=== PATIENT | female | born 1995 | race Caucasian/White ===

== ENCOUNTER → 2016-08-21 | Outpatient (CLI) | payer BC, OTHER ==
[~2016-08-21] MED LIST: MISC-696; PRENTAB26 PO
== END | disposition home or self-care (01) ==
LOC: C.LABSPEC 11:36
PROVIDERS: ATTEND Obstetrics & Gynecology
DX: Z34.03 Encounter for supervision of normal first pregnancy, third trimester (principal)

== ENCOUNTER 2016-08-31 05:54 | Inpatient (IN) | payer BC ==
[~2016-08-31] VITALS: Ht 165.1 cm; Wt 81.8 kg
[2016-08-31 06:34] VITALS: Ht 165.1 cm; Wt 81.8 kg
[2016-08-31] MEDS ORDERED: PRENTAB26 PO (06:34)
[2016-08-31] MEDS ORDERED: NURSING VERBAL MED ORDER ONE (06:45)
[2016-08-31] MEDS ORDERED: LACTATED RINGER'S 1000ML 1,000 ML IV SCH (07:00)
[2016-08-31 07:16] LABS: HEMATOCRIT 32.4 % (37-47); MEAN CORPUSCULAR HEMOGLOBIN 31.5 pg (25-34); MEAN CORPUSCULAR HGB CONC 34.3 g/dl (32-36); MEAN PLATELET VOLUME 10.4 fL (7.4-10.4); PLATELET COUNT 156 K/uL (130-400); RED BLOOD COUNT 3.52 M/uL (4.2-5.4); WHITE BLOOD COUNT 8.63 K/uL (4.8-10.8)
[2016-08-31] MEDS ORDERED: LACTATED RINGER'S 1000ML 500 ML IV PRN ×3 (07:36→17:10)
[2016-08-31] MEDS ORDERED: CALCIUM CARBONATE 500 MG CHEWABLE PO PRN ×2 (07:45→21:45)
[2016-08-31] MEDS ORDERED: OXYTOCIN 30 UNITS/500ML NSS IV PRN ×3 (07:45→22:00)
[2016-08-31] MEDS ORDERED: MISOPROSTOLTAB 50 MCG TAB PO ONE (08:15)
[2016-08-31] MEDS ORDERED: BUTORPHANOL TARTRATE 1 MG/ML VIAL IV PRN ×2 (09:45→11:30)
[2016-08-31] MEDS ORDERED: BUTORPHANOL TARTRATE 1 MG/ML VIAL IV ONE (09:45)
[2016-08-31] MEDS: LACTATED RINGER'S 1000ML 1,000 ML IV SCH ×4 (10:13→23:01)
[2016-08-31] MEDS ORDERED: FENTANYL 2MCG/ML ROPIV 1.25MG/ML 100ML BAG EPI ONE (13:12)
[2016-08-31] MEDS ORDERED: BUPIVACAINE 0.25% 30 ML VIAL ONE (13:12)
[2016-08-31] MEDS ORDERED: FENTANYL CITRATE INJ 50 MCG/1 ML 2 ML VIAL ONE (13:12)
[2016-08-31] MEDS ORDERED: EpHEDrine SULFATE INJ 50 MG/ML AMP ONE (13:12)
[2016-08-31] MEDS ORDERED: NALOXONE HCL INJ 1 MG in SODIUM CHLORIDE 0.9% 1000ML 1,000 ML IV PRN (14:07)
[2016-08-31] MEDS ORDERED: EpHEDrine SULFATE INJ 50 MG/ML AMP IV PRN (14:15)
[2016-08-31] MEDS ORDERED: NALBUPHINE HCL INJ 10 MG/ML AMP IV PRN (14:15)
[2016-08-31] MEDS ORDERED: PROMETHAZINE HCL INJ 25 MG in SODIUM CHLORIDE 0.9% 50ML 50 ML IV PRN (14:15)
[2016-08-31] MEDS ORDERED: DiphenhydrAMINE HCL 50 MG/ML VIAL IV PRN (14:15)
[2016-08-31] MEDS ORDERED: NALOXONE HCL INJ 0.4 MG/1 ML VIAL/CARP IV PRN (14:15)
[2016-08-31] MEDS ORDERED: ONDANSETRON INJ 2 MG/ML 2 ML VIAL IV PRN (14:15)
[2016-08-31] MEDS: FENTANYL 2MCG/ML ROPIV 1.25MG/ML 100ML BAG EPI PRN ×3 (14:31→22:58)
[2016-09-01] MEDS: LACTATED RINGER'S 1000ML 1,000 ML IV SCH (01:30)
[2016-09-01] MEDS ORDERED: OXYTOCIN INJ 20 UNITS in LACTATED RINGER'S 1000ML 1,000 ML IV SCH (05:06)
[2016-09-01] MEDS ORDERED: HYDROCORTISONE ACETATE 25 MG SUPP PR PRN (05:15)
[2016-09-01] MEDS ORDERED: OXYTOCIN 30 UNITS/500ML NSS IV PRN (05:15)
[2016-09-01] MEDS ORDERED: SUPERCREAM 0.870 % 15GM JAR EXT PRN (05:15)
[2016-09-01] MEDS ORDERED: ACETAMINOPHEN/CODEINE 300/30MG TAB PO PRN ×2 (05:15)
[2016-09-01] MEDS ORDERED: LANOLIN OINT EXT PRN ×2 (05:15)
[2016-09-01] MEDS ORDERED: MEASLES, MUMPS & RUBELLA VIRUS VIAL SQ. ONE (05:15)
[2016-09-01] MEDS ORDERED: DIPHTHERIA/TETANUS/PERTUSSIS 0.5 ML SYR/VIAL IM. ONE (05:15)
[2016-09-01] MEDS ORDERED: BENZOCAINE 20% AER SPR 82.5 GM CAN EXT PRN (05:15)
[2016-09-01] MEDS ORDERED: ACETAMINOPHEN 325 MG TAB PO PRN (05:15)
--- NOTE | 2016-09-01 05:45 | DELIVERY SUMMARY ---
DATE OF OPERATION: 09/01/2016 The patient dilated to complete and pushed to deliver a viable female infant. Apgars 8 and 9 via over a small vaginal laceration, double nuchal cord noted and baby delivered through. Mouth and nares were bulb suctioned and was vigorous at . Cord blood obtained. Placenta delivered spontaneously and intact 3-vessel cord. Hemostasis achieved with dilute Pitocin and uterine massage. Cervix and sulci intact. Small vaginal laceration repaired with figure of eight suture with 3-0 Vicryl for excellent hemostasis. EBL 300 mL. Mother and baby stable in recovery. I attest to the content of the Intraoperative Record and any orders documented therein. Any exceptions are noted below. MTDD
--- NOTE | 2016-09-01 07:25 | Anesthesia Procedure Note ---
Anesthesia Epidural Removal Nt Date & Time Sep 01, 2016 at 07:26 Vital Signs Pain Intensity: 0.0 Notes Mental Status: alert / awake / arousable, participated in evaluation Nausea / Vomiting: adequately controlled Pain: adequately controlled Airway Patency, RR, SpO2: stable & adequate BP & HR: stable & adequate Hydration State: stable & adequate Neuraxial Anesthesia: was administered, sensory block is resolved Anesthetic Complications: no major complications apparent, pt satisfied with anesthetic care Epidural: removed without complications, with tip intact Notes: Pt doing very well.
[2016-09-01 09:00] VITALS: BP 110/56; PULSE 65; TEMP 36.4
[2016-09-01] MEDS: IBUPROFEN 600 MG TAB PO PRN ×3 (12:11→23:50)
[2016-09-01] MEDS: DOCUSATE SODIUM 100 MG CAP PO SCH ×2 (12:11→20:22)
[2016-09-01 12:15] VITALS: BP 110/62; PULSE 66; TEMP 36.8; O2SAT 99
[2016-09-01 16:15] VITALS: BP 103/60; PULSE 65; TEMP 36.4
[2016-09-01 20:30] VITALS: BP 93/52; PULSE 74; TEMP 36.6; O2SAT 97
[2016-09-01 23:45] VITALS: BP 90/47; PULSE 59; TEMP 36.4
[2016-09-02 04:30] VITALS: BP 99/51; PULSE 67; TEMP 36.8
[2016-09-02] MEDS: IBUPROFEN 600 MG TAB PO PRN ×2 (04:39→20:25)
--- NOTE | 2016-09-02 06:51 | Progress Note ---
Subjective Sep 02, 2016. Subjective conversation w/ patient, physical exam Ambulation: ambulating normally Voiding: no voiding problems Passing Gas: Yes Diet Tolerance: Regular Diet Lochia: Moderate Feeding Type: Breast Feeding Pain: No pain reported this morning Review of Systems Constitutional: No chills, No fever Respiratory: No cough, No shortness of breath Cardiac: No chest pain Breast: No breast pain Abdomen: No nausea, No pain, No vomiting Female : No dysuria Objective Vital Signs Date Time Temp Pulse Resp B/P Pulse Ox O2 Delivery O2 Flow Rate FiO2 09/02/16 04:30 36.8 67 16 99/51 Room Air 09/01/16 23:45 Room Air 09/01/16 23:45 36.4 59 16 90/47 Room Air 09/01/16 20:30 36.6 74 16 93/52 97 Room Air 09/01/16 16:15 36.4 65 20 103/60 09/01/16 12:15 36.8 66 16 110/62 99 Room Air 09/01/16 09:00 36.4 65 20 110/56 Physical Exam General Appearance: WELL-APPEARING, WD/WN, NO APPARENT DISTRESS Respiratory/Chest: lungs clear, normal breath sounds Cardiovascular: regular rate, rhythm, no gallop, no murmur Abdomen: non tender, soft Fundus: Firm, Relation to Umbilicus (1cm below umbilicus) Extremities: no calf tenderness Medications Current Inpatient Medications Medications (Trade) Dose Ordered Sig/Rnadell Route Start Time Stop Time Status Last Admin Dose Admin Oxytocin (Pitocin IV) 30 units UD PRN IV 09/01/16 05:15 10/01/16 05:14 Benzocaine (Dermoplast Aero Spr) 1 appln PRN PRN EXT 09/01/16 05:15 10/01/16 05:14 09/01/16 20:21 1 APPLN Cocaine HCl (Supercream 0.870% Cr) BID PRN EXT 09/01/16 05:15 09/15/16 05:14 Hydrocortisone Acetate (Anusol Hc Supp) 25 mg BID PRN [place] 09/01/16 05:15 10/01/16 05:14 Lanolin (Lanolin Oint) PRN PRN EXT 09/01/16 05:15 10/01/16 05:14 Ibuprofen (Motrin Tab) 600 mg Q4H PRN PO 09/01/16 05:15 10/01/16 05:14 09/02/16 04:39 600 MG Acetaminophen (Tylenol Tab) 650 mg Q6H PRN PO 09/01/16 05:15 10/01/16 05:14 Acetaminophen/ Codeine Phosphate (Tylenol w/ Codeine #3 Tab) 1 tab Q4H PRN PO 09/01/16 05:15 10/01/16 05:14 Acetaminophen/ Codeine Phosphate (Tylenol w/ Codeine #3 Tab) 2 tab Q4H PRN PO 09/01/16 05:15 10/01/16 05:14 09/01/16 06:18 2 TAB Docusate Sodium (coLACE CAP) 100 mg BID PO 09/01/16 08:00 10/01/16 07:59 09/01/16 20:22 100 MG Assessment and Plan Post- Day#: 1 Continue Routine Care: - Vital Signs reviewed and WNL (temp max 36.8) - Blood Type: O+, GBS Negative, Rubella Immune - Patient doing well clinically - Encourage Ambulation today - Tolerating PO Diet - Pain well controlled with Motrin Resident Physician Supervision Note: I interviewed and examined the patient. Discussed with Dr. López and agree with findings and plan as documented in the note. Any exceptions or clarifications are listed here: [None] Documented By: Breana Aguilar
[2016-09-02] MEDS ORDERED: MISC-696 (07:24)
[2016-09-02 07:30] VITALS: BP 102/59; PULSE 74; TEMP 36.6
[2016-09-02] MEDS: DOCUSATE SODIUM 100 MG CAP PO SCH ×2 (07:48→20:17)
[2016-09-02 16:20] VITALS: BP 111/60; PULSE 65; TEMP 36.9
[2016-09-02 23:40] VITALS: BP 101/54; PULSE 52; TEMP 36.4
--- NOTE | 2016-09-03 06:51 | Discharge Instructions ---
Discharge Instructions Admission Reason for Admission: LABOR Discharge Discharge Diagnosis / Problem: Vaginal Delivery Discharge Goals Goal(s): Routine recovery after delivery Medications Continue Dispensed Medications: supercream, dermaplast, tucks, lansinoh Activity Recommendations Activity Limitations: per Instructions/Follow-up section . Instructions / Follow-Up Instructions / Follow-Up ACTIVITY RECOMMENDATIONS: * Gradual return to full activity over the next 2-3 weeks. * No lifting - nothing heavier than baby over the next 2-3 weeks. * Do not engage in vigorous exercise, sexual activity or sports until cleared by your physician. * Do not drive or operate any motorized equipment until cleared by your physician. * You may shower/bathe daily. MEDICATIONS: For discomfort or pain, you may use Acetaminophen (Tylenol), Ibuprofen (Advil), or Naproxen (Aleve) following the package directions. For constipation you may use Colace following the package directions. BREAST CARE: If you are not breast feeding: * Wear a supportive bra 24 hours a day for one to two weeks. * Avoid stimulating your breasts and nipples as much as possible during the first few weeks after delivery. * When taking a shower, have the warm water hit your back, not breasts. * When your breasts feel full, apply ice packs. Usually three to four times a day helps ease the discomfort. * Take a mild pain medication (Tylenol / Motrin) when you are uncomfortable. If breast feeding: * Use breast milk to lubricate nipples. Lansinoh cream may be used for sore nipples. You do not need to remove cream prior to breast feeding. If using a different brand of cream, check the label for directions regarding removal of cream prior to nursing. * Wear a supportive bra. * If having problems with breasts or breast feeding, call a store sales consultant or your health care provider. EPISIOTOMY CARE: After delivery, if you have an episiotomy (stitches), the following steps will ease discomfort and aid healing. * For the first 24 hours after delivery, place ice packs next to your episiotomy to help reduce swelling. * After the first 24 hour-period, sitz baths, either portable or in the tub, are suggested. A shower with a shower arm sprayed over the episiotomy may be comforting. * [place]orena care should be done after each voiding and bowel movement. Squirt warm water from a plastic bottle over the perineum (region of the body between the anus and urinary opening) and pat dry. * Use Dermoplast to ease discomfort. Shake container. [place] directly over the episiotomy. Place a Tucks on a clean sanitary pad next to your episiotomy. SPECIAL CARE INSTRUCTIONS: When you are discharged from the hospital, it is important for you to follow the instructions listed below: * During the first week at home, you should be able to care for yourself and your baby. In addition, the usual light household activities are encouraged. * Limit your activities to the way you feel. Do not try to clean the house or move furniture. Be sensible. * If you actively engage in sports and have done so up until the time of your delivery, you may resume these activities as soon as you feel able. This may take up to one month or even longer. Use good judgment. * Continue to take your vitamins for at least six weeks after the of your baby. * Your diet need not be limited unless you were on a special diet before your delivery. Breast-feeding mothers need around 2500 calories per day and at least 64-80 ounces of fluid per day (8 to 10 glasses). * You should eat foods from the four major food groups. Crash diets or fad diets are to be avoided. Eating lean meats, fresh fruits and vegetables, low-fat dairy products, high fiber foods and a regular exercise program, will help you get back to your pre- weight without putting your health at risk. * Constipation is sometimes a problem after delivery. Take a mild laxative as needed. If breast feeding, Milk of Magnesia is acceptable to use. You may use a suppository or Fleets enema if no episiotomy. * A daily shower or tub bath is suggested. Be sure to thoroughly and gently dry the perineum. * A bloody vaginal discharge will usually continue until around four weeks post . A small amount of bleeding may continue for as long as six weeks. Vaginal discharge changes from the bright red bleeding after delivery to pink then brownish and finally yellowish-pink before becoming white and disappearing. * Bleeding may increase with activity. Your first period may come in 4-8 weeks. If you are breast feeding, your period may be delayed even longer. * [place] (sex) can begin whenever both you and your partner feel comfortable and do not have any form of genital infection. It is recommended that you wait at least six weeks for internal and external healing to occur. If you have questions, please talk to your health care practitioner. A condom should be used to prevent infection and . * Foreplay, gentle intercourse and lubrication is very important the first several times to prevent pain. A water-based lubricant such as K-Y jelly or Astroglide may be used. * If you have RH negative blood and your baby is RH positive, you will receive RHOGAM by injection prior to discharge. The nurse will give you a card to keep with you that has the date and place that you received RHOGAM after delivery. * During your care, you had a Rubella screen done to check for the presence of rubella antibodies in your blood. If your test was negative, you will receive a Rubella vaccine prior to discharge. This vaccine may cause a fever, soreness at the injection site and flu-like symptoms. If these symptoms persist, notify your health care practitioner. is not advised for one month after a Rubella vaccine. * Verbalizes understanding of car seat law as reviewed with patient nursing. * Car Seat hand-out given and reviewed with patient by nursing. * Shaken baby information reviewed with patient by nursing. Call you doctor if: * Heavy bleeding (saturating several pads an hour) or passing clots the size of your fist. * A fever >101 degrees F (38.3 degrees C) on two occasions four hours apart and /or chills. * Unusual pain in the pelvic or vaginal areas. * "Baby Blues" lasting longer than two weeks. If you have any questions or concerns, call your health care practitioner at . FOLLOW UP VISIT: * Please call the office at to schedule a 6 week examination. It is important you keep this appointment. It is important for you to make arrangements for either yearly or twice yearly check-ups thereafter. Current Hospital Diet Patient's current hospital diet: Regular OB Diet Discharge Diet Recommended Diet: Regular Diet Pending Studies Studies pending at discharge: no Medical Emergencies . Who to Call and When: Medical Emergencies: If at any time you feel your situation is an emergency, please call 911 immediately. . Non-Emergent Contact Non-Emergency issues call your: Gastrointestinal Technician . . "Provider Documentation" section prepared by Mike López. VTE Core Measure Inpt VTE Proph given/why not?: Treatment not indicated
--- NOTE | 2016-09-03 06:57 | Progress Note ---
Subjective Sep 03, 2016. Subjective conversation w/ patient, physical exam Ambulation: ambulating normally Voiding: no voiding problems Passing Gas: Yes Diet Tolerance: Regular Diet Lochia: Small Feeding Type: Breast Feeding Pain: No pain reported this morning Review of Systems Constitutional: No chills, No fever Respiratory: No cough, No shortness of breath Cardiac: No chest pain Breast: No breast pain Abdomen: No nausea, No pain, No vomiting Female : No dysuria Objective Vital Signs Date Time Temp Pulse Resp B/P Pulse Ox O2 Delivery O2 Flow Rate FiO2 09/02/16 23:40 Room Air 09/02/16 23:40 36.4 52 18 101/54 Room Air 09/02/16 16:20 36.9 65 20 111/60 09/02/16 07:30 36.6 74 20 102/59 Physical Exam General Appearance: WELL-APPEARING, WD/WN, NO APPARENT DISTRESS Respiratory/Chest: lungs clear, normal breath sounds Cardiovascular: regular rate, rhythm, no gallop, no murmur Abdomen: non tender, soft Fundus: Relation to Umbilicus (1cm below umbilicus) Extremities: no calf tenderness Medications Current Inpatient Medications Medications (Trade) Dose Ordered Sig/Randell Route Start Time Stop Time Status Last Admin Dose Admin Oxytocin (Pitocin IV) 30 units UD PRN IV 09/01/16 05:15 10/01/16 05:14 Benzocaine (Dermoplast Aero Spr) 1 appln PRN PRN EXT 09/01/16 05:15 10/01/16 05:14 09/01/16 20:21 1 APPLN Cocaine HCl (Supercream 0.870% Cr) BID PRN EXT 09/01/16 05:15 09/15/16 05:14 Hydrocortisone Acetate (Anusol Hc Supp) 25 mg BID PRN [place] 09/01/16 05:15 10/01/16 05:14 Lanolin (Lanolin Oint) PRN PRN EXT 09/01/16 05:15 10/01/16 05:14 Ibuprofen (Motrin Tab) 600 mg Q4H PRN PO 09/01/16 05:15 10/01/16 05:14 09/02/16 20:25 600 MG Acetaminophen (Tylenol Tab) 650 mg Q6H PRN PO 09/01/16 05:15 10/01/16 05:14 Acetaminophen/ Codeine Phosphate (Tylenol w/ Codeine #3 Tab) 1 tab Q4H PRN PO 09/01/16 05:15 10/01/16 05:14 Acetaminophen/ Codeine Phosphate (Tylenol w/ Codeine #3 Tab) 2 tab Q4H PRN PO 09/01/16 05:15 10/01/16 05:14 09/01/16 06:18 2 TAB Docusate Sodium (coLACE CAP) 100 mg BID PO 09/01/16 08:00 10/01/16 07:59 09/02/16 20:17 100 MG Assessment and Plan Post- Day#: 2 Continue Routine Care: - Vital Signs reviewed and WNL (temp max 36.4) - Blood Type: O+, GBS Negative, Rubella Immune - Patient doing well clinically - Encourage Ambulation today - Tolerating PO Diet - Pain well controlled - Discharge today Resident Physician Supervision Note: I interviewed and examined the patient. Discussed with Dr. López and agree with findings and plan as documented in the note. Any exceptions or clarifications are listed here: [None] Documented By: Alexis Barrett
[2016-09-03 07:37] VITALS: BP 115/66; PULSE 60; TEMP 36.4; O2SAT 99
[2016-09-03 08:10] VITALS: O2SAT 99
[2016-09-03] MEDS: DOCUSATE SODIUM 100 MG CAP PO SCH (08:17)
== END 2016-09-03 12:25 | disposition home or self-care (01) | DRG 775 ==
LOC: C.OPB 05:54 → C.LD 05:54 → C.OPB 06:47 → C.LD 06:47 → C.OBG 09-01 09:18
PROVIDERS: ADMIT Obstetrics & Gynecology; ATTEND Obstetrics & Gynecology
PROC: 3E0P7GC Introduction of Other Therapeutic Substance into Female Reproductive, Via Natural or Artificial Opening (ICD-10-PCS; principal; 2016-09-01)
PROC: 10E0XZZ Delivery of Products of Conception, External Approach (ICD-10-PCS; principal; 2016-09-01)
PROC: 0UQGXZZ Repair Vagina, External Approach (ICD-10-PCS; principal; 2016-09-01)
DX: O42.92 Full-term premature rupture of membranes, unspecified as to length of time between rupture and onset of labor (principal); O71.4 Obstetric high vaginal laceration alone; O76 Abnormality in fetal heart rate and rhythm complicating labor and delivery; O69.81X0 Labor and delivery complicated by cord around neck, without compression, not applicable or unspecified; Z37.0 Single live birth; Z3A.38 38 weeks gestation of pregnancy; Z23 Encounter for immunization

== ENCOUNTER → 2017-11-24 | Outpatient (CLI) | payer BC ==
[~2017-11-24] MED LIST changes: -MISC-696; +MISC-836
== END | disposition home or self-care (01) ==
LOC: C.PAPS 14:14
PROVIDERS: ATTEND Obstetrics & Gynecology
DX: Z01.419 Encounter for gynecological examination (general) (routine) without abnormal findings (principal)

== ENCOUNTER → 2017-12-17 | Outpatient (CLI) | payer BC | END | disposition home or self-care (01) | LOC: C.LABSPEC 13:12 | PROVIDERS: ATTEND Obstetrics & Gynecology | DX: Z30.430 Encounter for insertion of intrauterine contraceptive device (principal) ==

== ENCOUNTER 2019-06-10 11:36 | Inpatient (IN) ==
[2019-06-10] MEDS ORDERED: OXYTOCIN 30 UNITS/500 ML BAG IV PRN ×3 (12:08→23:03)
--- NOTE | 2019-06-10 12:21 | History & Physical Report ---
Date of Service June 10, 2019 Assessment & Plan (1) Supervision of normal intrauterine in multigravida: 24yo at 39+ weeks GA. SROM 1. Fetus: Cat 1 2. Labor: Will augment with pitocin 3. Vitals: wnl 4. GBS - 5. Epidural PRN History of Present Illness Primary Care Provider: NO PCP 24yo at 39+ weeks GA. Present for LOF and contractions. Reports cxt ongoing q6-10 minutes for past 2-3 days. Intensity of ctx increasing since this am. Reports large gush of fluid ~1hr ago. Denied VB. Good FM. course has been uncomplicated. Hx of prior uncomplicated . GBS negative Allergies Allergy/AdvReac Type Severity Reaction Status Date / Time No Known Drug Allergies Allergy none Verified 06/06/19 08:38 Home Medications Home Medications Medication Instructions Recorded Confirmed Type vit-iron fum-folic ac 1 tab PO DAILY 05/25/19 06/08/19 History [ Vitamin] Patient History Medical History History of acne History of chicken pox History of dysmenorrhea Surgical History S/P wisdom tooth extraction Family History Father Diabetes Mother Kidney stone Social History Preferred Language: Estonian marital status: Current Living Situation: Family Current Living Situation Comment: spouse and daughter current occupation: homemaker Feels Safe at Home: Yes Smoking Status: Never smoker Hx Alcohol Use: No Hx Substance Use: No Physical Exam Constitutional: WD/WN, vitals as above Psychiatric: A+Ox3, euthymic affect Genitourinary: OB Exam Abdomen: + vertex Manual OB Exam: + cervical dilation 3 cm, + cervical effacement 40%, + station -2 and + amniotic fluid clear OB Exam Monitor Tracing: + external FHT monitor used, + external uterine monitor used, + category I and + normal FHT variability Results & Data Vital Signs (Past 12 Hours) Vital Signs Pulse BP 06/10/19 11:50 89 119/67
[2019-06-10 12:31] LABS: Hematocrit (blood only) 33.1 % (37-47); Hemoglobin 11.1 g/dL (12.0-16.0); Mean Corpuscular Volume 92.5 fL (80-100); Mean Platelet Volume 10.5 fL (7.4-10.4); Platelet Count 168 K/uL (130-400); RDW Coefficient of Variation 13.7 % (11.5-14.5); Red Blood Count 3.58 M/uL (4.2-5.4); White Blood Count 8.39 K/uL (4.8-10.8)
[2019-06-10 12:34] LABS: Mean Corpuscular Hgb Conc 33.5 g/dL (32-36)
[2019-06-10] MEDS: LACTATED RINGER'S 1,000 ML IV PRN ×2 (12:37→14:39)
[2019-06-10] MEDS ORDERED: ePHEDrine sulfate 50 MG/ML AMP ONE (13:53)
[2019-06-10] MEDS ORDERED: fentaNYL citrate 100 MCG/2 ML VIAL ONE (13:53)
[2019-06-10] MEDS ORDERED: BUPIVACAINE 0.25% 30 ML VIAL ONE (13:53)
[2019-06-10] MEDS ORDERED: fentaNYL 2MCG/ML ROPIV 1.25MG/ML 100 ML BAG EPI ONE (13:54)
--- NOTE | 2019-06-10 14:10 | Anesthesiology Consultation ---
Date of Service June 10, 2019 Assessment & Plan (1) Encounter for pre-operative examination: Chart Review Chart Review: Patient NOT seen in Pre Admission Testing and Acceptable Risk for Labor Epidural Consults Requested none ASA ASA2 Proposed Anesthesia Anesthesia Type: Labor Epidural Risk / Benefits Reviewed With: PT / POA / Parent / Guardian, Accepts Plan and Informed Consent Obtained History Height/Weight Height: 5 ft 6 in Weight: 86.183 kg Allergies Allergy/AdvReac Type Severity Reaction Status Date / Time No Known Drug Allergies Allergy none Verified 06/06/19 08:38 Medications Home Medications Medication Instructions Recorded Confirmed Last Taken vit-iron fum-folic ac 1 tab PO DAILY 06/10/19 06/10/19 06/09/19 12:00 [ Vitamin] Active Medications Generic Name Dose Route Start Last Admin Trade Name Freq PRN Reason Stop Dose Admin Lactated Ringer's 1,000 mls @ 125 mls/hr 06/10/19 12:08 06/10/19 13:50 Lr IV 06/12/19 12:07 999 mls/hr .Q8H PRN Infusion L&D Protocol Protocol Oxytocin 30 units in 500 mls @ 6 mls/hr 06/10/19 12:09 06/10/19 13:50 Pitocin IV 06/12/19 12:08 0.36 units/hr .Q24H PRN 6 mls/hr Labor Induction/Augmentation Titration Protocol 0.36 UNITS/HR NPO Date Last Intake of Fluids: 06/10/19 Time Last Intake of Fluids: 14:11 Date Last Intake of Solids: 06/10/19 Time Last Intake of Solids: 10:00 Past Medical History Medical History History of acne History of chicken pox History of dysmenorrhea Exercise / Class Metabolic Activity II 4-5 Yardwork/Stairs/Walk up hill Past Family History Family History Father Diabetes Mother Kidney stone Past Surgical History Surgical History S/P wisdom tooth extraction Past Anesthesia History No Hx of Anesthesia Complications History of PONV No Hx of PONV Social History Smoking Status: Never smoker Hx Alcohol Use: No Hx Substance Use: No substance use type: does not use Review of Systems Patient denies active symptoms of GERD. Physical Exam Vital Signs Last Vital Signs Temp 36.8 C 06/10/19 13:03 Pulse 85 06/10/19 13:51 Resp 20 06/10/19 13:50 BP 131/76 06/10/19 13:51 Constitutional not obese (Gravid uterus) ENMT Mouth: no TMJ abnormality and oral opening not small Thyromental Distance: > or= 3.5 Finger Breadths Mallampati Class: I Neck normal visual inspection; neck extension not limited Respiratory normal respiratory effort Auscultation: lungs clear to auscultation bilaterally Cardiovascular Rate/Rhythm: regular rate and regular rhythm Heart Sounds: no murmur Neurologic moves all extremities Psychiatric Orientation: alert and oriented x 3 Testing Laboratory Results 06/10/19 12:17
[2019-06-10] MEDS ORDERED: fentaNYL 2MCG/ML ROPIV 1.25MG/ML 100 ML BAG EPI PRN (14:42)
[2019-06-10] MEDS ORDERED: NALBUPHINE HCL INJ 10 MG/ML AMP IV PRN (14:42)
[2019-06-10] MEDS ORDERED: ONDANSETRON INJ 2 MG/ML 2 ML VIAL IV PRN (14:42)
[2019-06-10] MEDS ORDERED: NALOXONE HCL 0.4 MG/1 ML VIAL/CARP IV PRN (14:42)
[2019-06-10] MEDS ORDERED: NALOXONE HCL 1 MG in SODIUM CHLORIDE 0.9% 1000ML 1,000 ML IV PRN (14:42)
[2019-06-10] MEDS ORDERED: DiphenhydrAMINE HCL 50 MG/ML VIAL IV PRN (14:42)
[2019-06-10] MEDS ORDERED: ePHEDrine sulfate 50 MG/ML AMP IV PRN (14:42)
--- NOTE | 2019-06-10 17:16 | Labor Progress Brief Note ---
Date of Service June 10, 2019 Subjective Reason For Note: Routine Evaluation Assessment & Plan (1) Supervision of normal intrauterine in multigravida: 24yo at 39+ weeks GA. SROM 1. Fetus: Cat 1 2. Labor: pitocin 3. Vitals: wnl 4. GBS - 5. Epidural PRN Physical Exam Constitutional: WD/WN, vitals as above Genitourinary: OB Exam Abdomen: + vertex Manual OB Exam: + cervical dilation 3 cm, + cervical effacement 50%, + station -2 and + amniotic fluid clear OB Exam Monitor Tracing: + external FHT monitor used, + external uterine monitor used, + category I and + normal FHT variability Results & Data Vital Signs (Past 12 Hours) Vital Signs Temp Pulse Resp BP Pulse Ox 06/10/19 17:11 76 98 06/10/19 17:06 64 97 06/10/19 17:01 70 111/60 98 06/10/19 16:56 63 99 06/10/19 16:51 62 98 06/10/19 16:46 74 108/63 98 06/10/19 16:41 67 98 06/10/19 16:36 63 98 06/10/19 16:31 61 113/67 98 06/10/19 16:26 67 98 06/10/19 16:21 66 98 06/10/19 16:16 80 110/63 98 06/10/19 16:11 72 98 06/10/19 16:06 70 99 06/10/19 16:03 64 109/66 06/10/19 16:01 66 98 06/10/19 15:56 67 99 06/10/19 15:51 65 99 06/10/19 15:47 78 151/60 H 06/10/19 15:46 78 99 06/10/19 15:41 71 99 06/10/19 15:36 75 98 06/10/19 15:31 72 104/65 98 06/10/19 15:26 71 98 06/10/19 15:21 75 98 06/10/19 15:18 74 110/69 06/10/19 15:16 71 98 06/10/19 15:11 71 98 06/10/19 15:06 84 99 06/10/19 15:01 83 114/66 98 06/10/19 14:59 77 114/63 06/10/19 14:57 72 111/61 06/10/19 14:56 76 98 06/10/19 14:55 83 121/71 06/10/19 14:53 73 116/64 06/10/19 14:51 76 117/68 98 06/10/19 14:49 75 113/67 06/10/19 14:47 75 114/66 06/10/19 14:46 72 97 06/10/19 14:45 80 113/64 06/10/19 14:43 74 120/68 06/10/19 14:41 81 121/71 98 06/10/19 14:39 125/73 06/10/19 14:37 75 134/70 06/10/19 14:36 76 99 06/10/19 14:31 78 100 06/10/19 14:26 112 H 91 06/10/19 14:20 123 H 90 06/10/19 14:15 117 H 91 06/10/19 14:10 113 H 91 06/10/19 14:00 37.0 C 20 06/10/19 13:51 85 131/76 06/10/19 13:50 20 06/10/19 13:03 36.8 C 20 06/10/19 13:01 36.8 C 20 06/10/19 12:49 81 121/72 06/10/19 11:50 36.9 C 89 20 119/67
[2019-06-10] MEDS ORDERED: ACETAMINOPHEN 325 MG TAB ONE (20:51)
[2019-06-10] MEDS ORDERED: BENZOCAINE 20% AER SPR 82.5 GM CAN EXT PRN (23:03)
[2019-06-10] MEDS ORDERED: BISACODYL 10 MG SUPP PR PRN (23:03)
[2019-06-10] MEDS ORDERED: ACETAMINOPHEN 325 MG TAB PO PRN (23:03)
[2019-06-10] MEDS ORDERED: DIPHTHERIA/TETANUS/PERTUSSIS 0.5 ML SYR/VIAL IM ONE (23:03)
[2019-06-10] MEDS ORDERED: SUPERCREAM 0.870% 15 GM JAR EXT PRN (23:03)
[2019-06-10] MEDS ORDERED: HYDROCORTISONE ACETATE 25 MG SUPP PR PRN (23:03)
[2019-06-11] MEDS: IBUPROFEN 600 MG TAB PO PRN ×2 (04:53→15:05)
[2019-06-11 06:39] LABS: Hematocrit (blood only) 32.6 % (37-47); Hemoglobin 10.9 g/dL (12.0-16.0)
[2019-06-11] MEDS: ACETAMINOPHEN 325 MG TAB PO PRN ×2 (07:25→15:06)
[2019-06-11] MEDS: DOCUSATE SODIUM 100 MG CAP PO SCH ×2 (08:51→20:14)
[2019-06-11] MEDS: PRENATAL VITAMIN 1 TAB PO SCH (08:52)
--- NOTE | 2019-06-11 09:38 | Obstetrical Progress Note ---
Date of Service June 11, 2019 Assessment & Plan (1) Supervision of normal intrauterine in multigravida: 24yo s/p . Doing well. Requesting early D/c. Stable for discharge at present. will plan for D/c around 5pm pending peds allowing baby to be discharged Subjective Ambulation: ambulating normally Voiding: no voiding problems Passing Gas:: Yes Diet Tolerance:: regular diet Lochia:: Moderate Feeding Type:: breast feeding Physical Exam Constitutional WD/WN, vitals as above Gastrointestinal (Abdomen) Inspection/Auscultation: abdomen normal to inspection; abdomen not distended Percussion/Palpation: abdomen soft; abdomen nontender, no guarding and abdomen not rigid Genitourinary OB Exam Abdomen: + fundal height Fundus: + firm and + relation to umbilicus (Below); not tender and not boggy Results & Data Vital Signs (Past 12 Hours) Vital Signs Temp Pulse Pulse Pulse Resp BP BP 06/11/19 07:26 36.6 C 73 16 100/67 06/11/19 04:55 36.6 C 70 16 105/68 06/11/19 01:40 37.0 C 68 17 106/65 06/11/19 01:03 85 115/56 L 06/11/19 01:00 36.7 C 18 06/11/19 00:54 73 102/59 L 06/11/19 00:34 85 113/57 L 06/11/19 00:30 18 06/11/19 00:07 85 117/75 06/11/19 00:00 18 06/10/19 23:57 67 119/64 06/10/19 23:47 79 120/58 L 06/10/19 23:45 18 06/10/19 23:37 68 124/58 L 06/10/19 23:30 18 06/10/19 23:27 78 119/56 L 06/10/19 23:17 76 124/60 06/10/19 23:15 18 06/10/19 23:07 69 111/57 L 06/10/19 23:01 76 120/53 L 06/10/19 23:00 36.6 C 18 06/10/19 22:56 79 06/10/19 22:51 142 H 06/10/19 22:47 73 131/74 06/10/19 22:46 85 06/10/19 22:41 74 06/10/19 22:36 62 06/10/19 22:31 64 107/61 06/10/19 22:26 63 06/10/19 22:21 69 06/10/19 22:16 65 107/65 06/10/19 22:11 69 06/10/19 22:06 70 06/10/19 22:03 74 110/59 L 06/10/19 22:01 59 L 06/10/19 21:56 64 06/10/19 21:51 64 06/10/19 21:46 61 103/58 L 06/10/19 21:41 61 06/10/19 21:36 62 Pulse Ox 06/11/19 07:26 97 06/11/19 04:55 96 06/11/19 01:40 96 06/11/19 01:03 06/11/19 01:00 06/11/19 00:54 06/11/19 00:34 06/11/19 00:30 06/11/19 00:07 06/11/19 00:00 06/10/19 23:57 06/10/19 23:47 06/10/19 23:45 06/10/19 23:37 06/10/19 23:30 06/10/19 23:27 06/10/19 23:17 06/10/19 23:15 06/10/19 23:07 06/10/19 23:01 97 06/10/19 23:00 06/10/19 22:56 98 06/10/19 22:51 97 06/10/19 22:47 06/10/19 22:46 100 06/10/19 22:41 99 06/10/19 22:36 98 06/10/19 22:31 98 06/10/19 22:26 98 06/10/19 22:21 98 06/10/19 22:16 98 06/10/19 22:11 98 06/10/19 22:06 97 06/10/19 22:03 06/10/19 22:01 98 06/10/19 21:56 98 06/10/19 21:51 97 06/10/19 21:46 98 06/10/19 21:41 98 06/10/19 21:36 98
--- NOTE | 2019-06-11 09:55 | Anesthesia Procedure Note ---
Date of Service June 11, 2019 Anesthesia Post Epidural Note Vital Signs Vital Signs: Temp Pulse Resp BP Pulse Ox 36.6 C 73 16 100/67 97 06/11/19 07:26 06/11/19 07:26 06/11/19 07:26 06/11/19 07:26 06/11/19 07:26 Pain Intensity Back: Pain Intensity: 5 Notes Mental Status: alert / awake / arousable and participated in evaluation Nausea / Vomiting: adequately controlled Pain: adequately controlled Airway Patency, RR, SpO2: stable & adequate BP & HR: stable & adequate Hydration State: stable & adequate Neuraxial Anesthesia: was administered and sensory block resolved Anesthetic Complications: no major complications apparent and Pt Satisfied with anesthetic care Epidural: Removed without complications and With tip intact Notes: Epidural site clean, dry and intact. No signs of edema, erythema or bruising at insertion site. Pt instructed to request anesthesia if she has residual lower extremity numbness or if she develops lower extremity pain or weakness, back pain or headache.
--- NOTE | 2019-06-11 11:44 | Delivery Summary ---
DATE OF OPERATION: 06/10/2019 PROCEDURE: Normal spontaneous vaginal delivery. SURGEON: Mike Garcia MD. PREOPERATIVE DIAGNOSES: 1. Single intrauterine at 39 weeks plus gestational age. 2. Labor. POSTOPERATIVE DIAGNOSES: 1. Single intrauterine at 39 weeks plus gestational age. 2. Labor. 3. Status post delivery. ESTIMATED BLOOD LOSS: 300 mL. DRAINS: None. FLUIDS: Continuous lactated ringer. URINE OUTPUT: Not measured. COMPLICATIONS: None. FINDINGS: A viable male infant with weight of 7 pounds 6 ounces and Apgars of 8 and 9 at 1 and 5 minutes respectively. DESCRIPTION OF PROCEDURE: The patient progressed to 10 cm dilated, 100% effaced, +2 station, pushed over intact perineum with epidural anesthesia and delivered a viable male with weight and Apgars as noted above. The patient pushed for over approximately 2 contractions to achieve delivery. After the head delivered, the body and shoulders quickly followed. was noted to be vigorous soon after delivery. A 1-minute delayed cord clamping was initiated, after which the cord was double clamped and cut. Cord blood was then obtained. Attention was then turned to the placenta which was delivered intact, 3-vessel cord, gentle cord traction. On inspection of perineum, vagina, and cervix, there was noted to be no lacerations. Both mother and were stable in the immediate post-delivery period. Sponge and instrument counts were correct at the completion of the case. I attest to the content of the Intraoperative Record and any orders documented therein. Any exception s are noted below.
[2019-06-11] MEDS ORDERED: BISACODYL 5 MG TABEC PO SCH (20:00)
[2019-06-12] MEDS: IBUPROFEN 600 MG TAB PO PRN (06:35)
--- NOTE | 2019-06-12 07:08 | Obstetrical Progress Note ---
Date of Service <Manuel Corona DO - Last Filed: 06/12/19 07:10> June 12, 2019 Assessment & Plan <DO Ji Olmedo Last Filed: 06/12/19 07:10> (1) : -PPD#1 -Vitals reviewed, WNL (Tmax 36.9) - GBS -, Blood Type O+ - Clinically stable. - Feels well today. Eating well, voiding well, ambulating well. - Pain well controlled. - Routine post- care - After discharge will have [address] Garcia Day #:: 1 Subjective <Manuel Corona DO Last Filed: 06/12/19 07:10> Ambulation: ambulating normally Voiding: no voiding problems Passing Gas:: Yes Diet Tolerance:: regular diet Lochia:: Small Feeding Type:: breast feeding Current Pain Level(1-10): 3 (improves with analgesics) Patient is a 24 PPD#1. Patient states that she is feeling well today and that her pain is well controlled. She has no other complaints at this time. Constitutional: no fever and no chills Respiratory: no cough, no dyspnea and no wheezing Cardiovascular: no chest pain, no dyspnea, no palpitations, no edema and no calf pain Breast: no breast pain Gastrointestinal: no abdominal pain, no nausea and no vomiting Genitourinary (female): no dysuria and no difficulty urinating Neurologic: no headache(s) Physical Exam <DO Ji Olmedo Last Filed: 06/12/19 07:10> Constitutional WD/WN, vitals as above Respiratory normal respiratory effort, lungs clear to auscultation Cardiovascular Rate/Rhythm: regular rate and regular rhythm Heart Sounds: normal S1 and normal S2; no click, no gallop, no murmur and no cardiac rub Extremities: + edema (+1); no calf tenderness Gastrointestinal (Abdomen) Inspection/Auscultation: abdomen normal to inspection and normal bowel sounds Percussion/Palpation: abdomen soft; abdomen nontender Genitourinary OB Exam Abdomen: + fundal height Fundus: + firm and + relation to umbilicus (3cm below); not tender and not boggy Results & Data <DO Ji Olmedo Last Filed: 06/12/19 07:10> Vital Signs (Past 12 Hours) Vital Signs Temp Pulse Resp BP Pulse Ox 06/11/19 23:20 36.4 C L 66 16 108/70 96 06/11/19 19:35 36.7 C 69 17 107/68 97 <Mike Garcia MD - Last Filed: 06/12/19 07:12> Co-Signing Physician Notes Patient seen and evaluated and agree with the above findings and plan. Stable for discharge Resident Activity Tracking <Manuel Corona DO - Last Filed: 06/12/19 07:10> Resident Involvement: Resident Care Provided Care Provided: OB Delivery
[2019-06-12 08:02] VITALS: TEMP 97.9; O2SAT 97
[2019-06-12] MEDS: PRENATAL VITAMIN 1 TAB PO SCH (08:23)
[2019-06-12] MEDS: DOCUSATE SODIUM 100 MG CAP PO SCH (08:23)
[2019-06-12 16:50] VITALS: BP 106/66
[2019-06-12 21:21] VITALS: PULSE 70
== END 2019-06-12 21:05 | disposition home or self-care (01) | DRG 807 ==
LOC: OPB 11:36 → 4S1 11:38 → 4S2 06-11 01:23